=== PATIENT | female | born 1970 | race African-American/Black ===

== ENCOUNTER 2022-07-19 04:56 | Emergency (ER) | payer OTHER ==
[~2022-07-19] VITALS: Ht 165.1 cm; Wt 69.0 kg
[2022-07-19] MEDS ORDERED: ONDANSETRON HCL 4MG/2ML INJ IV STA (05:12)
[2022-07-19] MEDS ORDERED: KETOROLAC 30MG/ML VIAL IV STA (05:12)
[2022-07-19 06:31] LABS: HEMOGLOBIN. 14.7 g/dL (12.0-16.0); MEAN CORPUSCULAR VOLUME 89.9 fL (81.0-99.0); MEAN PLATELET VOLUME 12.1 fl (7.4-10.4); PLATELET 160 x1000/uL (130-400); RED BLOOD CELL COUNT 5.45 mill/uL (4.2-5.4); RED CELL DISTRIBUTION WIDTH 14.9 % (11.6-14.6)
[2022-07-19 06:38] LABS: CHLORIDE 82 mEq/L (98-107)
[2022-07-19 06:41] LABS: HCG SCREEN NEGATIVE
[2022-07-19] MEDS ORDERED: ONDANSETRON HCL 4MG/2ML INJ IV NR (08:00)
[2022-07-19] MEDS ORDERED: SODIUM CHLORIDE 0.9% 1,000 ML IV ONE (08:00)
[2022-07-19] MEDS ORDERED: INSULIN REGULAR (HUMULIN R) 300UNITS/3ML VIAL IV ONE (08:00)
[2022-07-19] MEDS ORDERED: KETOROLAC 30MG/ML VIAL IV NR (08:00)
[2022-07-19 08:03] LABS: PLATELET ESTIMATE NORMAL
[2022-07-19 10:07] VITALS: BP 149/116
[2022-07-19] MEDS ORDERED: INSULIN REGULAR 100U/100ML PMX 100 ML IV SCH (10:15)
== END 2022-07-19 10:47 | disposition left against medical advice (07) ==
LOC: EDBD 05:15 → ER 05:15 → EDBEDREQ 10:06 → EDBEDREQSVC 10:17 → EDBEDREQTM 10:17 → CANBEDREQ 10:44 → ER 10:47
DX: E87.0 Hyperosmolality and hypernatremia (principal); R73.9 Hyperglycemia, unspecified; F32.9 Major depressive disorder, single episode, unspecified; I10 Essential (primary) hypertension
CPT/HCPCS: 36415; 76705; 80053; 82010; 83690; 84703; 85025; 85610; 96374; 96375; 99291; J1815; J1885; J2405; J7030

== ENCOUNTER 2024-12-16 12:54 | Inpatient (IN) | payer MEDICAID, OTHER ==
[~2024-12-16] VITALS: Ht 167.6 cm; Wt 95.9 kg
[2024-12-16] MEDS ORDERED: SODIUM CHLORIDE 0.9% 1,000 ML IV ONE (13:45)
[2024-12-16 14:39] LABS: BASOPHILS % 1.3 % (0.0-2.0); EOSINOPHILS % 2.3 % (0.0-5.0); HEMATOCRIT. 30.7 % (36.0-48.0); HEMOGLOBIN. 9.4 g/dL (12.0-16.0); LYMPHOCYTES % 28.6 % (20.0-50.0); MEAN CORPUSCULAR HEMOGLOBIN 27.1 pg (28.0-32.0); MEAN CORPUSCULAR HGB CONC 30.6 g/dL (31.0-37.0); MEAN CORPUSCULAR VOLUME 88.6 fL (81.0-99.0); MEAN PLATELET VOLUME 10.5 fl (7.4-10.4); MONOCYTES % 4.1 % (2.0-8.0); NEUTROPHILS % 63.7 % (40.0-76.0); PLATELET 286 x1000/uL (130-400); RED BLOOD CELL COUNT 3.47 mill/uL (4.2-5.4)
[2024-12-16 14:50] LABS: CHLORIDE 113 mEq/L (98-107); POTASSIUM 4.7 mEq/L (3.5-5.1); SODIUM 142 mEq/L (136-145)
[2024-12-16 14:51] LABS: CARBON DIOXIDE 23 mEq/L (21-32)
[2024-12-16 14:52] LABS: CALCIUM 9.4 mg/dL (8.7-10.4)
[2024-12-16 14:59] LABS: ALANINE AMINOTRANSFERASE 8 IU/L (10-49); ALBUMIN 3.3 g/dL (3.2-4.8); ASPARTATE AMINOTRANSFERASE 12 IU/L (<34); BILIRUBIN DIRECT 0.2 mg/dL (<=3.0); BILIRUBIN TOTAL 0.7 mg/dL (0.1-1.0); CREATININE 4.3 mg/dL (0.6-1.0); ETHANOL BLOOD < 10 mg/dL (<10); GLUCOSE 106 mg/dL (70-105); PROTEIN TOTAL 7.9 g/dL (6.0-8.3); UREA NITROGEN BLOOD 39 mg/dL (9-23)
[2024-12-16 15:00] LABS: TROPONIN I HIGH SENSITIVITY 39 ng/L (3.0-34)
[2024-12-16 15:01] LABS: BG CARBOXYHEMOGLOBIN 0.8 % (0.5-1.5); BG DEOXYHEMOGLOBIN 15.3 % (0.0-5.0); BG FRACTION INSPIRED OXYGEN 28; BG HCO3 ACT 20.8 mmol/L (21.0-28.0); BG METHEMOGLOBIN 0.1 % (0.5-1.5); BG OXYGEN SATURATION 84.6 % (94.0-98.0); BG OXYHEMOGLOBIN 83.8 % (94.0-98.0); BG PCO2 41.4 mmHg (32.0-45.0); BG PH 7.318 (7.350-7.450); BG PO2 56.2 mmHg (83.0-108.0); BG SAMPLE SITE LEFT BRACHIAL; BG TOTAL HEMOGLOBIN 10.4 g/dL (12.0-16.0); BG VENT MODE NASAL CANNULA
[2024-12-16] MEDS: LABETALOL 5MG/ML 4ML INJ IV NR ×2 (16:15→17:47)
[2024-12-16 17:22] LABS: D-DIMER 2.15 mg/L FEU (<0.50); INR 1.1; PROTHROMBIN TIME 11.3 sec (9.6-11.0)
[2024-12-16 17:31] LABS: TROPONIN I HIGH SENSITIVITY 36 ng/L (3.0-34)
[2024-12-16] MEDS: NITROGLYCERIN OINT 1GM/INCH UDPKT TD NR (17:46)
[2024-12-16] MEDS: FUROSEMIDE 40MG/4ML VIAL IV NR (17:46)
[2024-12-16] MEDS: ASPIRIN 325MG EC TABLET PO NR (17:47)
[2024-12-16] MEDS: ENOXAPARIN 100MG/ML SYR SUBCUT NR (17:47)
[2024-12-16] MEDS ORDERED: DOCUSATE SODIUM 100MG CAPSULE PO PRN (23:15)
[2024-12-16] MEDS ORDERED: HYDROCODONE/ACETAMINOPHEN 5/325MG TABLET PO PRN (23:15)
[2024-12-17] VITALS (8 sets, daily range): BP systolic 127–145; BP diastolic 77–104; PULSE 72–104; RESP 18–24; TEMP 36.3–36.7; O2SAT 97–100
[2024-12-17] MEDS: FUROSEMIDE 40MG/4ML VIAL IV SCH (05:16)
[2024-12-17] MEDS: ASPIRIN 81MG EC TABLET PO SCH (10:53)
[2024-12-17] MEDS ORDERED: DEXTROSE 50% WATER 50ML SYRINGE IV PRN (16:45)
[2024-12-17] MEDS: BLOOD SUGAR DIAGNOSTIC STRIP TEST SCH (17:22)
[2024-12-18] VITALS: BP 123/89; PULSE 106; RESP 18; TEMP 36.4; O2SAT 100
[2024-12-18 04:00] VITALS: BP 135/99; PULSE 94; RESP 18; TEMP 36.4; O2SAT 100
[2024-12-18 08:00] VITALS: BP 134/100; PULSE 102; RESP 18; TEMP 36.6; O2SAT 100
[2024-12-18 12:00] VITALS: BP 120/80; PULSE 69; RESP 16; TEMP 36.6; O2SAT 96
[2024-12-18 16:00] VITALS: BP 149/106; PULSE 96; RESP 18; TEMP 36.6; O2SAT 99
[2024-12-18] MEDS ORDERED: NALOXONE HCL 0.4MG/ML VIAL IV PRN (17:00)
[2024-12-18] MEDS: FUROSEMIDE 40MG TABLET PO SCH (18:22)
[2024-12-18 20:00] VITALS: BP 117/92; PULSE 91; RESP 18; TEMP 36.9; O2SAT 100
[2024-12-19] VITALS: BP 139/94; PULSE 97; RESP 19; TEMP 36.6; O2SAT 100
[2024-12-19 04:00] VITALS: BP 124/95; PULSE 98; RESP 19; TEMP 36.7; O2SAT 100
[2024-12-19 06:55] LABS: POTASSIUM 4.5 mEq/L (3.5-5.1)
[2024-12-19 06:56] LABS: CALCIUM 8.9 mg/dL (8.7-10.4)
[2024-12-19 07:01] LABS: CREATININE 4.8 mg/dL (0.6-1.0)
[2024-12-19 07:03] LABS: FERRITIN 90 ng/mL (10-291)
[2024-12-19 07:04] LABS: VITAMIN B12 SERUM 101 pg/mL (211-911)
[2024-12-19 07:05] LABS: FOLIC ACID (FOLATE) SERUM 6.91 ng/mL (>5.38)
[2024-12-19 07:33] LABS: IRON 62 ug/dL (50-170)
[2024-12-19 07:34] LABS: LDL CHOLESTEROL 118 mg/dL (5-100); TRIGLYCERIDE 288 mg/dL (0-150)
[2024-12-19 07:35] LABS: CHOLESTEROL 196 mg/dL (<200); HDL CHOLESTEROL 30 mg/dL (>65)
[2024-12-19 07:36] LABS: PHOSPHORUS 4.7 mg/dL (2.5-4.9); TOTAL IRON BINDING CAPACITY 511 ug/dl (250-425)
[2024-12-19 08:00] VITALS: BP_SYST 140; BP_SYST 147; BP_DIAS 88; BP_DIAS 98; PULSE 106; PULSE 72; RESP 17; RESP 18; TEMP 36.1; TEMP 36.5; O2SAT 100; O2SAT 97
[2024-12-19 11:34] LABS: CLARITY URINE CLEAR (CLEAR); COLOR URINE YELLOW (YELLOW); GLUCOSE URINE NEGATIVE (NEGATIVE); KETONES URINE NEGATIVE (NEGATIVE); LEUKOCYTE ESTERASE URINE NEGATIVE (NEGATIVE); NITRITE URINE NEGATIVE (NEGATIVE); OCCULT BLOOD URINE TRACE (NEGATIVE); PROTEIN URINE 3+ (NEGATIVE); UROBILINOGEN URINE 0.2 E.U./dL (0.2-1.0)
[2024-12-19] MEDS: FERROUS SULFATE 325MG TABLET PO SCH (11:45)
[2024-12-19] MEDS ORDERED: LACTULOSE 20G/30ML UDC PO PRN (11:45)
[2024-12-19 11:53] LABS: SQUAMOUS EPITHELIAL CELL URINE 1+ /lpf (RARE/1+)
[2024-12-19 11:54] LABS: RBC URINE 0-2 /hpf (0-2)
[2024-12-19 11:56] LABS: BACTERIA URINE TRACE
[2024-12-19 11:59] LABS: *AMPHETAMINES SCREEN URINE NEGATIVE (NEGATIVE); *BARBITURATES SCREEN URINE NEGATIVE (NEGATIVE); *BENZODIAZEPINES SCREEN URINE NEGATIVE (NEGATIVE); *COCAINE SCREEN URINE NEGATIVE (NEGATIVE); CANNABINOID URINE SCREEN NEGATIVE (NEGATIVE); ECSTASY MDMA SCREEN URINE NEGATIVE (NEGATIVE); METHADONE URINE SCREEN NEGATIVE (NEGATIVE); OPIATES URINE SCREEN NEGATIVE (NEGATIVE); PHENCYCLIDINE URINE SCREEN NEGATIVE (NEGATIVE)
[2024-12-19 12:00] VITALS: BP 137/98; PULSE 108; RESP 16; TEMP 36.6; O2SAT 96
[2024-12-19 16:00] VITALS: BP 134/98; PULSE 109; RESP 18; TEMP 36.2; O2SAT 97
[2024-12-19 20:00] VITALS: BP 134/93; PULSE 95; RESP 19; TEMP 36.7; O2SAT 98
[2024-12-20] VITALS: BP 130/89; PULSE 93; RESP 19; TEMP 36.8; O2SAT 100
[2024-12-20 04:00] VITALS: BP 129/101; PULSE 98; RESP 19; TEMP 36.6; O2SAT 100
[2024-12-20] MEDS: INSULIN LISPRO 100 UNITS/ML SUBCUT SCH (07:50)
[2024-12-20 08:00] VITALS: BP 140/99; PULSE 91; RESP 18; TEMP 36.7; O2SAT 100
[2024-12-20] MEDS: CLONIDINE 0.1MG TABLET PO PRN (09:03)
[2024-12-20 12:00] VITALS: BP 109/74; PULSE 84; RESP 18; TEMP 36.3; O2SAT 99
[2024-12-20 12:30] LABS: POTASSIUM 4.1 mEq/L (3.5-5.1)
[2024-12-20 12:31] LABS: CALCIUM 9.1 mg/dL (8.7-10.4)
[2024-12-20 12:36] LABS: CREATININE 4.4 mg/dL (0.6-1.0)
[2024-12-20] MEDS ORDERED: FURO40TA5 PO (13:14)
[2024-12-20] MEDS ORDERED: ASPI-1406 PO (13:14)
[2024-12-20] MEDS ORDERED: DOCU-138 MT (13:14)
[2024-12-20] MEDS ORDERED: FERR-63 PO (13:14)
[2024-12-20 16:00] VITALS: BP 116/79; PULSE 91; RESP 18; TEMP 36.3; O2SAT 100
[2024-12-20 20:00] VITALS: BP 112/76; PULSE 89; RESP 17; TEMP 36.4; O2SAT 97
[2024-12-21] VITALS (9 sets, daily range): BP systolic 128–152; BP diastolic 64–109; PULSE 14–104; RESP 14–20; TEMP 35.9–36.7; O2SAT 96–100
[2024-12-21 06:29] LABS: POTASSIUM 4.2 mEq/L (3.5-5.1)
[2024-12-21 06:31] LABS: CALCIUM 8.8 mg/dL (8.7-10.4)
[2024-12-21 06:35] LABS: BASOPHILS % 0.7 % (0.0-2.0); CREATININE 4.4 mg/dL (0.6-1.0); EOSINOPHILS % 4.5 % (0.0-5.0); HEMATOCRIT. 32.2 % (36.0-48.0); LYMPHOCYTES % 29.1 % (20.0-50.0); MEAN CORPUSCULAR HEMOGLOBIN 27.5 pg (28.0-32.0); MEAN CORPUSCULAR HGB CONC 30.9 g/dL (31.0-37.0); MEAN CORPUSCULAR VOLUME 89.1 fL (81.0-99.0); MEAN PLATELET VOLUME 10.1 fl (7.4-10.4); MONOCYTES % 7.9 % (2.0-8.0); NEUTROPHILS % 57.8 % (40.0-76.0); PLATELET 238 x1000/uL (130-400); RED BLOOD CELL COUNT 3.62 mill/uL (4.2-5.4); RED CELL DISTRIBUTION WIDTH 16.4 % (11.6-14.6); WHITE BLOOD COUNT 5.2 x1000/uL (4.5-11.0)
[2024-12-22] VITALS: BP 126/80; PULSE 98; RESP 16; TEMP 36.4; O2SAT 100
[2024-12-22 04:00] VITALS: BP 133/74; PULSE 88; RESP 18; TEMP 36.6; O2SAT 99
[2024-12-22 08:00] VITALS: BP 144/104; PULSE 99; RESP 18; TEMP 36.4; O2SAT 98
[2024-12-22 12:00] VITALS: BP 114/90; PULSE 92; RESP 18; TEMP 36.5; O2SAT 99
[2024-12-22 13:48] VITALS: BP 114/90; PULSE 92; TEMP 97.7; O2SAT 98
== END 2024-12-22 14:32 | disposition home or self-care (01) | DRG 133 ==
LOC: ER 12:54 → EDBEDREQ 19:29 → EDBEDREQTM 19:29 → 6WST 22:13
PROVIDERS: ADMIT Internal Medicine; ATTEND Internal Medicine
DX: J96.01 Acute respiratory failure with hypoxia (principal); I50.43 Acute on chronic combined systolic (congestive) and diastolic (congestive) heart failure; N17.9 Acute kidney failure, unspecified; I27.20 Pulmonary hypertension, unspecified; E11.22 Type 2 diabetes mellitus with diabetic chronic kidney disease; D64.9 Anemia, unspecified; E05.90 Thyrotoxicosis, unspecified without thyrotoxic crisis or storm; E66.9 Obesity, unspecified; I13.0 Hypertensive heart and chronic kidney disease with heart failure and stage 1 through stage 4 chronic kidney disease, or unspecified chronic kidney disease; F32.A Depression, unspecified; I45.2 Bifascicular block; N18.9 Chronic kidney disease, unspecified; I08.1 Rheumatic disorders of both mitral and tricuspid valves; Z68.34 Body mass index [BMI] 34.0-34.9, adult; Z85.3 Personal history of malignant neoplasm of breast
CPT/HCPCS: 36415; 36600; 71045; 71250; 76770; 80048; 80061; 80076; 80305; 80320; 81003; 82375; 82607; 82728; 82746; 82805; 82962; 83540; 83550; 83605; 83735; 83880; 84100; 84145; 84484; 85025; 85379; 86850; 86900; 93005; 93306; 93970; 94070; 94760; 97161; 99285; A4606; J1650; J1815; J1940; J3490; J7030; G0480